=== PATIENT | male | born 1995 | race Caucasian/White ===

== ENCOUNTER 2018-02-05 05:47 | Day surgery (SDC) | payer OTHER ==
[2018-02-05] MEDS: CEFAZOLIN 2 GM/50 ML (PMX) 50 ML IVPB (06:00)
[2018-02-05 06:16] LABS: ADD MAN DIFF? NO
[2018-02-05 06:23] LABS: BASOPHIL # 0.1 10^3/ul (0.0-0.1); BASOPHILS % 0.8 % (0.0-2.0); EOSINOPHILS # 0.2 10^3/ul (0.0-0.5); EOSINOPHILS % 2.3 % (0.0-7.0); HEMATOCRIT 46.4 % (42.0-52.0); IMMATURE GRANS #M 0.02 10^3/ul; IMMATURE GRANS % (M) 0.3 %; LYMPHOCYTES # 2.9 10^3/ul (0.8-2.9); LYMPHOCYTES % 38.7 % (15.0-51.0); MEAN CORPUSCULAR HEMOGLOBIN 27.5 pg (29.0-33.0); MEAN CORPUSCULAR HGB CONC 34.5 g/dl (32.0-37.0); MEAN CORPUSCULAR VOLUME 79.9 fl (82.0-101.0); MONOCYTE # 0.6 10^3/ul (0.3-0.9); MONOCYTES % 7.4 % (0.0-11.0); NEUTROPHIL # 3.8 10^3/ul (1.6-7.5); NEUTROPHILS % 50.5 % (39.0-77.0); PLATELET COUNT 174 10^3/UL (140-415); RED BLOOD COUNT 5.81 10^6/ul (4.70-6.10); RED CELL DISTRIBUTION WIDTH 12.4 % (11.5-14.5)
[2018-02-05 06:23] LABS: WHITE BLOOD COUNT 7.5 10^3/ul (4.8-10.8)
[2018-02-05 06:34] LABS: PROTIME 13.3 Sec (11.9-14.9)
[2018-02-05 06:40] LABS: PARTIAL THROMBOPLASTIN TIME 37.9 Sec (25.0-35.0)
[2018-02-05] MEDS: LACTATED RINGER'S 1,000 ML IV (06:43)
[2018-02-05] MEDS ORDERED: DEXAMETHASONE 4 MG/ML 1 ML INJ (07:00)
[2018-02-05] MEDS ORDERED: METOCLOPRAMIDE 10 MG INJ (07:00)
[2018-02-05] MEDS ORDERED: CEFAZOLIN 1 GM INJ (07:00)
[2018-02-05] MEDS ORDERED: MIDAZOLAM 1 MG/ML 2 ML INJ (07:29)
[2018-02-05] MEDS ORDERED: FENTAnyl 50 MCG/ML VIAL (07:29)
[2018-02-05] MEDS ORDERED: ONDANSETRON 4 MG INJ (07:29)
[2018-02-05] MEDS ORDERED: LIDOCAINE 2% (SDV) 5 ML INJ (07:57)
[2018-02-05] MEDS ORDERED: PROPOFOL 20 ML (07:57)
[2018-02-05] MEDS ORDERED: HYDROCODONE/APAP (5/325) TAB PO (08:00)
[2018-02-05] MEDS: POLYMYXIN/BACITRACIN 1L IRRIG (08:00)
[2018-02-05] MEDS: LIDOCAINE 1% (MPF) 30 ML INJ (08:00)
[2018-02-05] MEDS ORDERED: ONDANSETRON 4 MG INJ IV (08:00)
== END 2018-02-05 10:20 | disposition home or self-care (01) ==
LOC: SDS 05:47
DX: M67.431 Ganglion, right wrist (principal)
CPT/HCPCS: 25111; 85025; 85610; 85730; 88304